=== PATIENT | female | born 1950 | race Asian ===

== ENCOUNTER → 2024-05-04 | Outpatient (CLI) | payer OTHER, SELFPAY ==
[2024-05-04 12:33] LABS: Creatinine MALB Rnd Ur 163 mg/dL (30-125); Microalbumin Creat Ratio 3 mg/gCrea (<30); Microalbumin, Random Urine 5 mg/L (0-300)
== END | disposition home or self-care (01) ==
LOC: SLDO 11:09
PROVIDERS: PCP Internal Medicine; Referring Provider Internal Medicine; Visit Provider Internal Medicine
DX: E11.9 Type 2 diabetes mellitus without complications (principal)
CPT/HCPCS: 82043; 82570

== ENCOUNTER → 2024-06-29 | Outpatient (CLI) | payer OTHER, SELFPAY ==
--- NOTE | 2024-06-29 12:20 | XR_ITS ---
Examination: Bone densitometry Date and time of exam:June 29, 2024 1249 hours INDICATIONS: Menopause age 47 hysterectomy 2011, personal history osteoporosis, calcium and vitamin D 10 years, diagnosis diabetes, diagnosis uterine carcinoma Technique: Lumbar spine and hip total bone mineralization values of an calculated. Peak reference and age match control results have been displayed. Findings: Lumbar spine total bone mineralization is0.931 gm/cm2. This is 1.1 standard deviations below peak reference. This is 1.1 standard deviations above age-matched controls. Hip total bone mineralization is 0.810 gm/cm2 This is 1.1 standard deviations below peak reference. This is 0.5 standard deviations above age-matched controls Impression: There is osteopenia based on lumbar spine measurements. There is osteopenia based on hip measurements Lumbar mineralization is increased 3.6% compared with August 02, 2021 Hip mineralization is increase 1.4% compared with August 02, 2021
== END | disposition home or self-care (01) ==
PROVIDERS: PCP Internal Medicine; Referring Provider Internal Medicine; Visit Provider Internal Medicine
DX: M85.89 Other specified disorders of bone density and structure, multiple sites (principal)
CPT/HCPCS: 77080

== ENCOUNTER → 2024-07-27 | Outpatient (CLI) | payer OTHER, SELFPAY ==
[2024-07-27 09:35] LABS: Basophils # (Auto) 0.1 Thou/mm3 (0.0-0.2); Basophils % (Auto) 1 % (0-2.5); Eosinophils # (Auto) 0.1 Thou/mm3 (0.0-0.5); Eosinophils % (Auto) 1 % (0-10); Hematocrit 39.6 % (36.0-46.0); Hemoglobin 12.7 g/dL (12.0-16.0); Immature Granulocytes % (Auto) 5 % (0-0); Lymphocytes # (Auto) 3.5 Thou/mm3 (1.0-4.8); Lymphocytes % (Auto) 26 % (10-50); Mean Corpuscular HGB Conc 32.1 g/dl (31.0-37.0); Mean Corpuscular Hemoglobin 30.5 pg (25.0-35.0); Mean Corpuscular Volume 95 fL (80-100); Monocytes # (Auto) 1.4 Thou/mm3 (0.0-0.8); Monocytes % (Auto) 11 % (0-12); Neutrophils # (Auto) 7.7 Thou/mm3 (1.8-7.7); Neutrophils % (Auto) 58 % (37-80); Nucleated Red Blood Cell % 0 /100 WBC (0); Platelet Count 326 Thou/mm3 (140-440); RDW Standard Deviation 47.9 fL (36.4-46.3); Red Blood Count 4.17 Miln/mm3 (4.00-5.20); White Blood Count 13.4 Thou/mm3 (3.6-11.0)
[2024-07-27 09:46] LABS: Glucose Estimated Average 123 mg/dL (80-131); Hemoglobin A1C 5.9 % Hgb (4.8-6.0)
[2024-07-27 09:48] LABS: Alanine Aminotransferase 25 U/L (10-49); Albumin/Globulin Ratio 1.7 (1.2-2.2); Alkaline Phosphatase 39 U/L (46-116); Anion Gap 4 (7-16); Aspartate Amino Transferase 16 U/L (0-34); BUN/Creatinine Ratio 30 Ratio (12-20); Bilirubin,Total 0.5 mg/dL (0.3-1.2); Blood Urea Nitrogen 21 mg/dL (9-23); Calcium 8.8 mg/dL (8.3-10.6); Calcium (Corrected) 8.8 mg/dL (8.5-10.1); Carbon Dioxide 32.8 mMol/L (20.0-31.0); Cardiac Risk Estimate 2.1 RATIO (3.7-5.6); Chloride 104 mMol/L (98-107); Cholesterol 133 mg/dL (132-200); Creatinine (Component) 0.7 mg/dL (0.6-1.3); Free T4 (Free Thyroxine) 1.23 ng/dL (0.89-1.76); Globulin 2.4 gm/dL (2.3-3.5); Glucose 93 mg/dL (74-106); HDL Cholesterol 62 mg/dL (40-60); LDL Cholesterol,Calculated 46 mg/dL (0-130); Osmolality,Calculated 284 (275-295); Potassium 3.9 mMol/L (3.4-5.1); Sodium 141 mMol/L (136-145); Thyroid Stimulating Hormone 1.39 uIU/mL (0.55-4.78); Total Protein 6.4 gm/dL (5.7-8.2); Triglycerides 124 mg/dL (30-150); eGFR > 60 See Note
== END | disposition home or self-care (01) ==
LOC: COPL 08:19
PROVIDERS: PCP Internal Medicine; Referring Provider Internal Medicine; Visit Provider Internal Medicine
DX: Z00.00 Encounter for general adult medical examination without abnormal findings (principal); I10 Essential (primary) hypertension; E11.9 Type 2 diabetes mellitus without complications
CPT/HCPCS: 36415; 80053; 80061; 83036; 84439; 84443; 85025

== ENCOUNTER 2024-07-31 17:08 | Emergency (ER) | payer OTHER, SELFPAY ==
[2024-07-31 17:09] VITALS: BMI 26.5
[2024-07-31 17:19] VITALS: PULSE 110; RESP 19; TEMP 36.7; O2SAT 91
[2024-07-31 17:25] VITALS: BP 170/93
--- NOTE | 2024-07-31 17:29 | XR_ITS ---
Examination: PA lateral chest 2 views Technique: Upright PA lateral chest 2 views Exam date and time: July 31, 2024 1758 hrs. Comparison June 29, 2022 Indications: Coughing fever this morning Findings: Accentuation bronchovascular markings Normal heart size No lobar pneumonia The osseous structures are intact Impression: Bronchitis pattern
--- NOTE | 2024-07-31 17:29 | PD.EDRME ---
Rapid Medical Screening Exam RME Arrival date/time: 07/31/24 17:08 73-year-old female with a history of asthma presents to the emergency room with a chief complaint of coughing, congestion, shortness of breath x 1 week. I have greeted and performed a focused initial assessment of this patient. A comprehensive ED assessment and evaluation of the patient, analysis of all test results, and completion of the medical decision making process will be conducted by additional ED providers. Chief Complaint: Shortness of Breath/Dyspnea Vital signs: Vital Signs Temperature 98.1 F 07/31/24 17:19 Pulse Rate 110 H 07/31/24 17:19 Respiratory Rate 19 07/31/24 17:19 Pulse Oximetry (%) 91 L 07/31/24 17:19 Oxygen Delivery Method Room Air 07/31/24 17:19 Vital signs reviewed by provider: Yes
[2024-07-31] MEDS: ACETAMINOPHEN 500 MG TABLET 1000 MG PO (17:37)
[2024-07-31] MEDS: DEXAMETHASONE SOD PHOS INJ 10 MG/ML VIAL PO (17:38)
--- NOTE | 2024-07-31 18:27 | PD.EDSOB ---
ED SOB =RME/HPI General Chief Complaint: Shortness of Breath/Dyspnea Stated Complaint: DIFFICULTY BREATHING X 2 WEEKS LOW O2 Time Seen by Provider: 07/31/24 18:24 Arrival date/time: 07/31/24 17:08 73F with history of asthma, HTN, and DM presents to ED with 2 week of worsening cough, congestion, and SOB. Patient is on last day of 10 day course of cipro w/o relief. Limitations: no limitations RME / HPI RME / HPI Narrative: 07/31/24 17:08 73-year-old female with a history of asthma presents to the emergency room with a chief complaint of coughing, congestion, shortness of breath x 1 week. I have greeted and performed a focused initial assessment of this patient. A comprehensive ED assessment and evaluation of the patient, analysis of all test results, and completion of the medical decision making process will be conducted by additional ED providers. Related Data Home Medications ?Medication ?Instructions ?Recorded ?Confirmed albuterol sulfate 90 mcg/actuation 2 puff inhalation Q4H PRN sob 12/29/17 05/31/21 aerosol inhaler (Ventolin HFA) alendronate 10 mg tablet 70 mg PO QWEEK 12/29/17 05/31/21 losartan 25 mg tablet 25 mg PO DAILY 12/29/17 05/31/21 montelukast 10 mg tablet 10 mg PO QPM 12/29/17 05/31/21 (Singulair) budesonide-formoterol HFA 160 2 puff inhalation BID 11/18/20 05/31/21 mcg-4.5 mcg/actuation aerosol inhaler (Symbicort) calcium 500 mg (as 1 tab PO QDAY 11/18/20 05/31/21 carbonate)-vitamin D3 3.125 mcg (125 unit) tablet Previous Rx's ?Medication ?Instructions ?Recorded prednisone 50 mg tablet 50 mg PO QDAY #5 tabs 06/29/22 prednisone 50 mg tablet 50 mg PO QDAY 7 days #7 tabs 08/01/24 Allergies Allergy/AdvReac Type Severity Reaction Status Date / Time No Known Allergies Allergy Verified 06/29/22 16:47 Review of Systems Review of Systems Systems Reviewed: All systems reviewed, normal except as documented Constitutional Constitutional: Reports system reviewed and no additional complaints, except as documented, Denies fever(s) and Denies headache(s) ENT Ears, Nose, Mouth, and Throat: Denies disequilibrium and Denies headache(s) Cardiovascular Cardiovascular: Reports system reviewed and no additional complaints, except as documented, Denies chest pain and Reports dyspnea Respiratory Respiratory: Reports system reviewed and no additional complaints, except as documented, Reports as per HPI, Reports chest congestion, Reports cough and Reports dyspnea Gastrointestinal Gastrointestinal: Reports system reviewed and no additional complaints, except as documented, Denies abdominal pain, Denies nausea and Denies vomiting Neurologic Neurologic: Reports system reviewed and no additional complaints, except as documented, Denies confusion, Denies disequilibrium and Denies headache(s) Psychiatric Psychiatric: Denies confusion Past Medical History Past Medical History NEUROLOGIC: Positive Neurological Disorders and Migraine (Hx non currently); Negative Seizures CARDIAC: Positive Cardiac Disorders, Hypercholesterolemia (TAKES MED), Hypertension (TAKES MED) and Varicose Veins (DAX LEGS HAD SURGERY); Negative Congestive Heart Failure or Cellulitis RESPIRATORY: Positive Asthma (HOSP 2004,TAKES INHALER); Negative Chronic Obstructive Pulmonary Disease (COPD), Bronchitis, Pneumonia, Tuberculosis, Pulmonary Embolism or Sleep Apnea GASTROINTESTINAL: Positive Gastrointestinal Disorders and Hemorrhoids (NO SURG); Negative Hepatitis, Pancreatitis, Gall Bladder Disease or Gastroesophageal Reflux Disease GENITOURINARY: Negative Genitourinary Disorders or Renal Disease REPRODUCTIVE: Positive Previous Pregnancies (X3); Negative Gonorrhea or Pelvic Inflammatory Disease MUSCULOSKELETAL: Positive Musculoskeletal Disorders, Arthritis, Osteoporosis and Carpal Tunnel Syndrome (right); Negative Fractures ENT: Positive Cataracts (right eye 11/2020) ENDOCRINE: Positive Endocrine Disorders and Diabetes Mellitus Type 2 (NO MEDS); Negative Diabetes Mellitus Type 1 HEMATOLOGIC: Negative Blood Disorders or Anemia OTHER HISTORY: Positive Hospitalization (HOSP FOR ASTHMA), Chicken Pox and Cancer ([facility]); Negative Autoimmune Disease, Down Syndrome, Developmental Delay, Shingles, Falls, Blood Transfusions, Blood Transfusion Reaction, Anesthesia Reactions, Chemotherapy, Radiation Therapy, MRSA, Measles, Mumps or Clostridium Difficile Family History FAMILY HISTORY: Positive Family Cardiac Disorders (FATHER,MOTHER,BROTHERS,SISTERS (HTN)), Family Cancer (mother- stomach; sister- lymphoma,FATHER (PROSTATE)) and Family Surgery (MOTHER,FATHER,BROTHERS,SISTERS); Negative Family Psychiatric Problems, Family Respiratory Disorders, Family Gastrointestinal Problems or Family Anesthesia Reaction Surgical History SURGICAL: Positive Hysterectomy (TOTAL,DAX SALPINGECTOMY) and Tubal Ligation; Negative Cardiac Surgery or Pacemaker Social History SMOKING STATUS: Never smoker ED Exam General Limitations: Present no limitations General appearance: Present alert and in no apparent distress Head Head exam: Present atraumatic Eye Eye exam: Present normal appearance, PERRL and EOMI ENT ENT exam: Present normal exam, normal oropharynx and mucous membranes moist Neck Neck exam: Present normal inspection, full ROM and trachea midline Chest Chest inspection: Present normal inspection and symmetric chest wall rise Respiratory Respiratory exam: Present wheezes and prolonged expiratory phase Cardiovascular Cardiovascular exam: Present regular rate, normal rhythm and normal heart sounds Abdominal Exam Abdominal exam: Present soft and normal bowel sounds Extremities Exam Extremities exam: Present normal inspection and full ROM Back Exam Back exam: Present normal inspection and full ROM Neurological Exam Neurological exam: Present alert, oriented X3 and CN II-XII intact Psychiatric Psychiatric exam: Present normal affect and normal mood Skin Skin exam: Present warm, dry, intact and normal color Course Quality Measures none Orders Category Date Time Status Bedside COVID-19 Antigen Test NOW Care 07/31/24 17:29 Active Bedside COVID-19 Antigen Test NOW Care 07/31/24 21:33 Active Bedside Influenza A&B Antigen Test NOW Care 07/31/24 17:29 Completed Bedside Influenza A&B Antigen Test NOW Care 07/31/24 21:35 Completed COVID-19 Screening Questionnaire NOW Care 07/31/24 20:51 Active Decision to Admit X1 Care 07/31/24 20:51 Completed EKG (ED ONLY) *Do not use* NOW Care 07/31/24 18:[address] chest wo con Stat Exams 07/31/24 20:25 Completed EKG (ED Only) Stat Exams 07/31/24 18:30 Draft XR chest 2V Stat Exams 07/31/24 17:29 Completed BNP [B-Type Natriuretic Peptide] Stat Lab 07/31/24 18:58 Completed CBC Stat Lab 07/31/24 18:58 Completed CMP [Comprehensive Metabolic Panel] Stat Lab 07/31/24 18:58 Completed Cocci Serology IgM with reflex to IgG [Cocci Serology, Lab 07/31/24 18:39 Received Unk History] Stat D-Dimer Stat Lab 07/31/24 18:58 Completed Lactate (Lactic Acid) Stat Lab 07/31/24 18:58 Completed Magnesium Stat Lab 07/31/24 18:58 Completed Procalcitonin Stat Lab 07/31/24 18:58 Completed RSV [Respiratory Syncytial Virus Ag] Stat Lab 07/31/24 00:03 Completed Troponin I Stat Lab 07/31/24 18:58 Completed Acetaminophen Tab [Tylenol ES Tab] Med 07/31/24 17:29 Discontinued 1,000 mg PO X1 ONE Albuterol/Ipratr Rt Delmi [Duoneb Rt Delmi] Med 07/31/24 23:41 Discontinued 3 ml INH X1 ONE Albuterol/Ipratr Rt [place]mi [Duoneb Rt Delmi] Med 07/31/24 17:29 Discontinued 6 ml INH X1 ONE Budesonide Rt [Pulmicort Rt Delmi] Med 07/31/24 18:32 Discontinued 0.5 mg INH X1 ONE Budesonide Rt [Pulmicort Rt Delmi] Med 08/01/24 01:42 Discontinued 0.5 mg INH X1 ONE Dexamethasone Inj [Decadron Inj] Med 07/31/24 17:29 Discontinued 10 mg PO X1 ONE Ipratropium [place] Rt Delmi [Atrovent Rt Delmi] Med 08/01/24 01:42 Discontinued 0.5 mg INH X1 ONE Levalbuterol Rt [Xopenex Rt Delmi] Med 08/01/24 01:42 Discontinued 5 mg INH X1 ONE Sodium Chloride Rt Delmi 0.9% [NS Rt Delmi 0.9%] Med 08/01/24 01:42 Active 3 ml INH PRN PRN predniSONE Med 07/31/24 23:41 Discontinued 40 mg PO X1 ONE Oxygen Delivery NOW RT 07/31/24 21:09 Active Vital Signs Vital signs: Vital Signs Temperature 98.1 F 07/31/24 17:19 Pulse Rate 110 H 07/31/24 17:19 Respiratory Rate 19 07/31/24 17:19 Pulse Oximetry (%) 91 L 07/31/24 17:19 Oxygen Delivery Method Room Air 07/31/24 17:19 O2 at 91% on RA Shortness of Breath / Dyspnea MDM Narrative MDM Narrative:: 73F with history of asthma, HTN, and DM presents to ED with 2 week of worsening cough, congestion, and SOB. Patient is on last day of 10 day course of cipro w/o relief. Physical exam reveals prolonged expiration and wheezing. Patient is afebrile, calm, and alert. Significant leukocytosis of 25k. Normal procal/lactate. CXR bronchitis. CT no PNA. CMP unremarkable. Swabs neg. EKG is sinus tach of 117. Normal trop, BNP, d-dimer. Improvement with meds, though patient is still satting in low 90s w/o O2. Spoke to IM resident and Dr. Noble, attending, who declined admission as patient has good follow-up outpatient (Saturday) and is feeling better. Despite multiple breathing tx/steroids, patient still has some wheezing and satting low on O2. However, patient wants to go home. Patient knows to return if worsening. Patient data External records reviewed:: [facility] previous records Clinical information provided by:: patient Social determinants that could affect healthcare access:: none Patient has the following chronic illnesses:: asthma, HTN, and DM How is presenting disease/condition affected by chronic disease/condition?: exacerbated by Evaluation data The following diagnostics were reviewed and interpreted by me:: lab results, radiology exam(s) and EKG tracing(s) Lab and/or radiology exams considered but not ordered:: ordered Interpretation Summary: above Medications / Prescriptions Medications or Prescriptions considered but not ordered:: ordered Medication administrations:: Medication Administration History Sodium Chloride (Sodium Chloride Rt Delmi 0.9% 3 Ml Nebu) 3 ml INH PRN PRN PRN Reason: SOLN Stop: 08/31/24 01:41 Last Admin: 08/01/24 02:34 Dose: 3 ml Documented By: MM Discontinued Medications Acetaminophen (Acetaminophen 500 Mg Tablet) 1,000 mg PO X1 ONE Stop: 07/31/24 17:30 Last Admin: 07/31/24 17:37 Dose: 1,000 mg Documented By: Albuterol/Ipratropium (Albuterol/Ipratropium (Duoneb) Rt Delmi 3 Ml Nebu) 6 ml INH X1 ONE Stop: 07/31/24 17:30 Last Admin: 07/31/24 19:00 Dose: 6 ml Documented By: Albuterol/Ipratropium (Albuterol/Ipratropium (Duoneb) Rt Delmi 3 Ml Nebu) 3 ml INH X1 ONE Stop: 07/31/24 23:42 Last Admin: 08/01/24 00:31 Dose: 3 ml Documented By: MM Budesonide (Budesonide Rt 0.5 Mg/2 Ml Nebu) 0.5 mg INH X1 ONE Stop: 07/31/24 18:33 Last Admin: 07/31/24 19:00 Dose: 0.5 mg Documented By: CELSO Budesonide (Budesonide Rt 0.5 Mg/2 Ml Nebu) 0.5 mg INH X1 ONE Stop: 08/01/24 01:43 Last Admin: 08/01/24 02:33 Dose: 0.5 mg Documented By: MM Dexamethasone Sodium Phosphate (Dexamethasone Sod Phos Inj 10 Mg/Ml Vial) 10 mg PO X1 ONE Stop: 07/31/24 17:30 Last Admin: 07/31/24 17:38 Dose: 10 mg Documented By: Ipratropium [place] (Ipratropium Rt 0.5 Mg/ 2.5 Ml Nebu) 0.5 mg INH X1 ONE Stop: 08/01/24 01:43 Last Admin: 08/01/24 02:34 Dose: 0.5 mg Documented By: SALAZAR Levalbuterol HCl (Levalbuterol Rt 1.25 Mg/0.5 Ml Nebu) 5 mg INH X1 ONE Stop: 08/01/24 01:43 Last Admin: 08/01/24 02:33 Dose: 5 mg Documented By: SALAZAR Prednisone (Prednisone 20 Mg Tablet) 40 mg PO X1 ONE Stop: 07/31/24 23:42 Last Admin: 08/01/24 00:08 Dose: 40 mg Documented By: EF above Consultations Consultation(s) initiated? (list below): Yes Diagnosis Shortness of Breath Differential Diagnosis: acute exacerbation of chronic obstructive airways disease, congestive heart failure, community acquired pneumonia, asthma with exacerbation and pulmonary embolism Most likely diagnosis given after review of the tests above:: asthma exacerbation Admission Indicated Admission indicated?: not indicated Admission Request Was there a request for admission?: Yes Admission Attestation Admission request attestation: Discussed case with [Dr. Noble and resident] from Hospitalist service regarding admission. Discussed patients ED course, exam findings, labs, and radiology results. The Hospitalist [declines] to accept the patient for admission. Disposition Plan Disposition Plan: Discharge Discharge Attestation Discharge Attestation: The patient and all family members were given an opportunity to ask questions and understood the discharge instructions. Discharge instructions specifically effects, indications for sooner follow up or return to the emergency department, and the expected course of current diagnosis. Patient condition: Stable Discharge Plan Plan Patient Disposition: HOME (Self Care) Disposition Comment: Stable Prescriptions/Referrals Prescriptions/Med Rec: New prednisone 50 mg tablet 50 mg PO QDAY 7 Days Qty: 7 0RF No Action alendronate 10 mg Tablet 70 mg PO QWEEK albuterol sulfate [Ventolin HFA] 90 mcg/actuation Hfa Aerosol Inhaler 2 puff INHALATION Q4H PRN (Reason: sob) losartan 25 mg Tablet 25 mg PO DAILY montelukast [Singulair] 10 mg Tablet 10 mg PO QPM calcium carbonate-vitamin D3 500 mg(1,250mg) -125 unit Tablet 1 tab PO QDAY budesonide-formoterol [Symbicort] 160-4.5 mcg/actuation Hfa Aerosol Inhaler 2 puff INHALATION BID prednisone 50 mg tablet 50 mg PO QDAY Qty: 5 0RF Referrals: Mitra Membreno MD [Primary Care Provider] - In 1 week Problem List Clinical Impression: Asthma with exacerbation Patient/Caregiver Discharge Instructions Education Materials: ED Asthma, Acute (Adult) Additional Instructions: Please follow-up with PCP within 24-48 hours and return immediately if symptoms worsen. Print Language: Polish Stand Alone Forms: Patient Portal Info Letter PA/FRONT END ARCHITECT Supervising Physician KEITH/FRONT END ARCHITECT Supervising Physician: Dr. Swenson
--- NOTE | 2024-07-31 18:30 | EKG_ITS ---
[facility] Test Date: 2024-07-31 Pat Name: MARLA SIMMS Department: Room: - Gender: Female Pill Coater: : 1950 Requested By: Luis Angel Lerma Order Number: [id number] Reading MD: Luis Angel Lerma Measurements Intervals [place] Rate: 117 P: 81 MI: 145 QRS: -25 QRSD: 82 T: 74 QT: 322 QTc: 450 Interpretive Statements SINUS TACHYCARDIA BORDERLINE LEFT AXIS DEVIATION [QRS AXIS < -20] ABNORMAL RHYTHM ECG Compared to ECG 04/13/2022 09:39:30 Sinus rhythm no longer present /store/S0/[id number].pdf
[2024-07-31] MEDS: BUDESONIDE RT 0.5 MG/2 ML NEBU INH (19:00)
[2024-07-31] MEDS: ALBUTEROL/IPRATROPIUM (Duoneb) RT SOL 3 ML NEBU 6 ML INH (19:00)
[2024-07-31 19:06] VITALS: PULSE 106; RESP 18; O2SAT 98
[2024-07-31 19:29] LABS: Basophils # (Auto) 0.1 Thou/mm3 (0.0-0.2); Basophils % (Auto) 0 % (0-2.5); Eosinophils # (Auto) 0.2 Thou/mm3 (0.0-0.5); Eosinophils % (Auto) 1 % (0-10); Hematocrit 41.6 % (36.0-46.0); Hemoglobin 13.7 g/dL (12.0-16.0); Immature Granulocytes % (Auto) 1 % (0-0); Immature Granulocytes Auto 0.23 Thou/mm3 (0.00-0.00); Lymphocytes # (Auto) 1.1 Thou/mm3 (1.0-4.8); Lymphocytes % (Auto) 5 % (10-50); Mean Corpuscular HGB Conc 32.9 g/dl (31.0-37.0); Mean Corpuscular Hemoglobin 30.7 pg (25.0-35.0); Mean Corpuscular Volume 93 fL (80-100); Monocytes # (Auto) 1.2 Thou/mm3 (0.0-0.8); Monocytes % (Auto) 5 % (0-12); Neutrophils # (Auto) 21.8 Thou/mm3 (1.8-7.7); Neutrophils % (Auto) 89 % (37-80); Nucleated Red Blood Cell % 0 /100 WBC (0); Platelet Count 309 Thou/mm3 (140-440); RDW Standard Deviation 47.8 fL (36.4-46.3); Red Blood Count 4.46 Miln/mm3 (4.00-5.20); White Blood Count 24.6 Thou/mm3 (3.6-11.0)
[2024-07-31 19:41] LABS: B-Type Natriuretic Peptide < 20 pg/mL (0-100)
[2024-07-31 19:46] LABS: Alanine Aminotransferase 38 U/L (10-49); Albumin, Serum 4.4 gm/dL (3.4-4.8); Albumin/Globulin Ratio 1.5 (1.2-2.2); Alkaline Phosphatase 40 U/L (46-116); Anion Gap 7 (7-16); Aspartate Amino Transferase 48 U/L (0-34); BUN/Creatinine Ratio 17 Ratio (12-20); Bilirubin,Total 0.6 mg/dL (0.3-1.2); Blood Urea Nitrogen 15 mg/dL (9-23); Calcium 9.1 mg/dL (8.3-10.6); Calcium (Corrected) 9.1 mg/dL (8.5-10.1); Carbon Dioxide 29.4 mMol/L (20.0-31.0); Chloride 103 mMol/L (98-107); Creatinine (Component) 0.9 mg/dL (0.6-1.3); Estimated Creatinine Clearance 53.1 mL/min (>60); Glucose 128 mg/dL (74-106); Osmolality,Calculated 280 (275-295); Potassium 3.9 mMol/L (3.4-5.1); Procalcitonin 0.15 ng/ml (0.0-0.49); Sodium 139 mMol/L (136-145); Total Protein 7.4 gm/dL (5.7-8.2); Troponin I < 0.020 ng/mL (0.0-0.045); eGFR > 60 See Note
[2024-07-31 20:23] LABS: D-Dimer 333 ng/mL (<600)
--- NOTE | 2024-07-31 20:25 | XR_ITS ---
Examination: CT chest, without intravenous contrast. Sagittal and coronal 2-D reconstructions. Exam date and time: July 31, 2024 2125 hrs. Indications: Difficulty breathing, hypoxia beginning 2 weeks ago CTDI:vol (mGy) 8.58 DLP: (mGycm) 289 Technique: Multiple 3.0 mm axial sections of the chest to been obtained. Bone and lung density settings are obtained. Sagittal and coronal 2-D reconstructions have been obtained. Low dose protocols were performed. One or more of the following dose reduction techniques were used; automated exposure control, adjustment of the mA and/or KV according to patient size, use of iterative reconstruction technique. Findings: No thoracic aortic aneurysm dilatation Pulmonary artery segments are not enlarged No paratracheal tracheobronchial or bronchopulmonary adenopathy At least 10 bilateral subcentimeter pulmonary nodules Mildly dilated bronchi in the lower lobes No lobar pneumonia or pulmonary edema No visualized liver or splenic lesion Cholelithiasis No hydronephrosis Impression: Bibasilar bronchiectasis At least 10 bilateral subcentimeter pulmonary nodules, with this study as baseline recommend 6 month follow-up CT chest without contrast to document stability of these nodules
[2024-07-31 20:46] VITALS: BP 121/70; PULSE 104; RESP 21; TEMP 37.1; O2SAT 90
[2024-07-31 21:15] VITALS: BP 129/66; O2SAT 96
[2024-07-31 21:22] VITALS: PULSE 112; RESP 17; RESP 92
[2024-08-01] VITALS (7 sets, daily range): BP systolic 123–133; BP diastolic 63–69; PULSE 90–102; RESP 20; O2SAT 90–99
[2024-08-01] MEDS: predniSONE 20 MG TABLET 40 MG PO (00:08)
[2024-08-01] MEDS: ALBUTEROL/IPRATROPIUM (Duoneb) RT SOL 3 ML NEBU INH (00:31)
[2024-08-01] MEDS: BUDESONIDE RT 0.5 MG/2 ML NEBU INH (02:33)
[2024-08-01] MEDS: LEVALBUTEROL RT 1.25 MG/0.5 ML NEBU 5 MG INH (02:33)
[2024-08-01] MEDS: IPRATROPIUM RT 0.5 MG/ 2.5 ML NEBU INH (02:34)
[2024-08-01] MEDS: SODIUM CHLORIDE RT SOL 0.9% 3 ML NEBU INH (02:34)
[2024-08-01 02:43] LABS: Respiratory Syncytial Virus Ag Negative (Negative)
[2024-08-01 15:13] LABS: Cocci Serology, IgM Negative (Negative)
[2024-08-03 15:12] LABS: Cocci Serology, IgG Negative (Negative)
== END 2024-08-01 05:11 | disposition home or self-care (01) ==
PROVIDERS: Physician Assistant; Emergency Provider Emergency Medicine; PCP Internal Medicine
DX: J45.901 Unspecified asthma with (acute) exacerbation (principal); I10 Essential (primary) hypertension; D72.829 Elevated white blood cell count, unspecified; E78.00 Pure hypercholesterolemia, unspecified; Z79.51 Long term (current) use of inhaled steroids
CPT/HCPCS: 36415; 71046; 71250; 80053; 83605; 83735; 83880; 84145; 84484; 85025; 85379; 86331; 86635; 87400; 87634; 87811; 93005; 94640; 94644; 99284; A9270; J1100; J7512

== ENCOUNTER → 2025-02-23 | Outpatient (CLI) | payer OTHER, SELFPAY ==
[2025-02-23 09:28] LABS: Collection Type, Urine Clean Catch
[2025-02-23 10:22] LABS: Glucose Estimated Average 128 mg/dL (80-131); Hemoglobin A1C 6.1 % Hgb (4.8-6.0)
[2025-02-23 10:22] LABS: Bilirubin,Urine Negative (Negative); Blood,Urine Negative (Negative); Clarity,Urine Clear (Clear/Hazy); Color,Urine Lt-Yellow (Lt Yel-Yel); Glucose, Urine Negative (Negative); Hyaline Casts,Urine < 1 /hpf (0-1); Ketones,Urine Negative (Negative); Leukocyte Esterase,Urine Negative (Negative); Nitrite,Urine Negative (Negative); PH,Urine 6.0 (5.0-7.0); Protein,Urine Negative (Neg - Trace); RBC,Urine < 1 /hpf (0-3); Specific Gravity,Urine 1.019 (1.001-1.035); Squamous Epithelial Cell,Urine < 1 /hpf (0-5); Urobilinogen,Urine Negative mg/dL (0.0-1.0); WBC,Urine < 1 /hpf (0-5)
[2025-02-23 10:34] LABS: Alanine Aminotransferase 15 U/L (10-49); Albumin, Serum 4.2 gm/dL (3.4-4.8); Albumin/Globulin Ratio 1.6 (1.2-2.2); Alkaline Phosphatase 42 U/L (46-116); Anion Gap 11 (7-16); Aspartate Amino Transferase 22 U/L (0-34); BUN/Creatinine Ratio 19 Ratio (12-20); Bilirubin,Total 0.7 mg/dL (0.3-1.2); Blood Urea Nitrogen 15 mg/dL (9-23); Calcium 9.5 mg/dL (8.3-10.6); Calcium (Corrected) 9.5 mg/dL (8.5-10.1); Carbon Dioxide 30.5 mMol/L (20.0-31.0); Cardiac Risk Estimate 2.9 RATIO (3.7-5.6); Chloride 102 mMol/L (98-107); Cholesterol 196 mg/dL (132-200); Creatinine (Component) 0.8 mg/dL (0.6-1.3); Globulin 2.6 gm/dL (2.3-3.5); Glucose 93 mg/dL (74-106); HDL Cholesterol 67 mg/dL (40-60); LDL Cholesterol,Calculated 107 mg/dL (0-130); Osmolality,Calculated 285 (275-295); Potassium 4.3 mMol/L (3.4-5.1); Sodium 143 mMol/L (136-145); Total Protein 6.8 gm/dL (5.7-8.2); Triglycerides 110 mg/dL (30-150); eGFR > 60 See Note
[2025-02-23 10:41] LABS: Creatinine MALB Rnd Ur 84 mg/dL (30-125); Microalbumin, Random Urine < 3 mg/L (0-300)
== END | disposition home or self-care (01) ==
LOC: COPL 08:47
PROVIDERS: PCP Internal Medicine; Referring Provider Internal Medicine; Visit Provider Internal Medicine
DX: Z00.00 Encounter for general adult medical examination without abnormal findings (principal); E11.9 Type 2 diabetes mellitus without complications; I10 Essential (primary) hypertension
CPT/HCPCS: 36415; 80053; 80061; 81001; 82043; 82570; 83036

== ENCOUNTER → 2025-03-03 | Outpatient (CLI) | payer OTHER, SELFPAY ==
[2025-03-03 10:56] LABS: OBS Performed By LAB; OBS QC OK? Yes
[2025-03-03 12:43] LABS: OBS Developer Lot # 4-24-551749; Occult Blood, Stool Negative (Negative); Occult Blood, Stool #2 Negative (Negative); Occult Blood, Stool #3 Negative (Negative)
== END | disposition home or self-care (01) ==
LOC: SLDO 10:44
PROVIDERS: PCP Internal Medicine; Referring Provider Internal Medicine; Visit Provider Internal Medicine
DX: Z00.00 Encounter for general adult medical examination without abnormal findings (principal); E11.9 Type 2 diabetes mellitus without complications; I10 Essential (primary) hypertension
CPT/HCPCS: 82270